=== PATIENT | male | born 1955 | race Caucasian/White ===

== ENCOUNTER 2018-02-14 22:05 | Emergency (ER) | payer SELFPAY ==
[2018-02-14 22:43] VITALS: BP 168/99; PULSE 105; TEMP 98.3; BMI 30.5
[2018-02-14] MEDS ORDERED: SODIUM CHLORIDE 0.9% 1000 ML INFUS.BAG IV ONE (23:00)
--- NOTE | 2018-02-14 23:00 | PDOC ---
History of Present Illness - General Chief Complaint: Injury Stated Complaint: FELL, LEFT LEG PAIN Time Seen by Provider: 02/14/18 22:44 - History of Present Illness Initial Comments: 02/15/18 03:44 Chief complaint leg injury History of present illness: 60 years old past medical history significant for cigarette smoking presents to the emergency department status post a fall that a few stairs landed on his left leg injuring his left leg. The fall occurred on Thursday and is currently Thursday. Over the last several days he has noted marked swelling and ecchymosis to his left lower extremity. Patient works in [employer] he is continued to go to work despite injury has been ambulating around and walking on the leg. Past History - Past Medical History Allergies/Adverse Reactions: Allergies Allergy/AdvReac Type Severity Reaction Status Date / Time No Known Allergies Allergy Verified 02/14/18 22:35 Home Medications: Ambulatory Orders Alprazolam [Xanax] 0.25 mg PO BID PRN 02/14/18 COPD: No Psychiatric Problems: Yes (BIPOLAR) - Suicide/Smoking/Psychosocial Hx Smoking History: Current every day smoker Have you smoked in the past 12 months: Yes Number of Cigarettes Smoked Daily: 10 Information on smoking cessation initiated: Yes 'Breaking Loose' booklet given: 11/24/15 Hx Alcohol Use: Yes (ONCE IN A WHILE ONLY) Drug/Substance Use Hx: No Substance Use Type: None Review of Systems - Review of Systems Comments:: 02/15/18 03:44 ROS: A complete review of 10 out of 10 review of systems is taken and is negative apart from what is previously mentioned below and in the HPI. *Physical Exam - Vital Signs Last Vital Signs Temp Pulse Resp BP Pulse Ox 98.3 F 105 H 18 168/99 100 02/14/18 22:33 02/14/18 22:33 02/14/18 22:33 02/14/18 22:33 02/14/18 22:33 - Physical Exam Comments: 02/15/18 03:45 Vitals: Triage Vital signs reviewed General Appearance: no acute distress, well nourished well developed, Head: Atraumatic, Neck: Supple;No Nucal rigidity Chest Wall: Nontender Cardiac: Regular rate and rhythym, no murmurs, no rubs, no gallops, Lungs: Clear to auscultation bilateral, good air movement bilaterally, Abdomen: Soft, non distended, normal bowel sounds, non tender to palpation Extremities: Full range of motion to all extremities, ecchymosis extending from the hamstring of the left leg down to the calf. With 2+ pitting edema. No tenderness to palpation over the pelvis hip no tenderness to palpation along the femur or knee tibia-fibula. Neurovascularly intact distally. Skin: Warm and dry, ecchymosis and swelling to the left leg. Neuro: Cranial Nerves 2-12 grossly intact, Strength intact to all extremities, Sensation intact to all extremities,gait normal Psych: normal mood, normal affect ED Treatment Course - LABORATORY CBC & Chemistry Diagram: 02/14/18 23:15 02/14/18 23:15 Medical Decision Making - Medical Decision Making 02/15/18 03:48 History and examination consistent with hamstring tear from fall with resulting edema and ecchymosis from continued walking and using leg No bony tenderness noted. Will check labs hydrate ultrasound to rule out DVT given swelling and reassess Reevaluation 3:30 AM no obvious DVT on ultrasound. Will recommend crutches nonweightbearing to left leg patient advised to purchase compression stocking keep leg elevated ice affected area and follow-up with orthopedics in 1-2 days Findings, the need for follow-up, strict return instructions discussed with patient. *DC/Admit/Observation/Transfer Diagnosis at time of Disposition: Hamstring tear - Discharge Dispostion Disposition: HOME Condition at time of disposition: Good Admit: No - Referrals Referrals: Ronnie Dixon MD [Primary Care Provider] - Jordan Correa MD [Staff Physician] - Nasir Valdez MD [Staff Physician] - Pedro Bravo MD [Staff Physician] - - Patient Instructions Printed Discharge Instructions: Muscle Strain Additional Instructions: Use crutches at all times while ambulating. Purchase thigh-high compression stockings extra-large wear at all times. Ice the back of your left thigh 20 minutes on 20 minutes off for the next 3 days. Take [id number] Motrin for 2 days as directed on package. Call today for an appointment with orthopedics within 1-2 days you can see either , Dr. Valdez, or Dr. Correa. Return to the emergency department for any severe pain chest pain shortness of breath or for any concerns. - Post Discharge Activity
[2018-02-15 00:09] LABS: BASO % 0.3 % (0-2.0); EOS % 2.5 % (0-4.5); HEMATOCRIT 29.5 % (35.4-49); HEMOGLOBIN 10.3 GM/dL (11.7-16.9); LYMPH % 19.1 % (8-40); MCH 33.7 pg (25.7-33.7); MEAN CELL VOLUME 96.2 fl (80-96); MEAN PLT VOLUME 8.6 fl (7.5-11.1); MONO % 6.1 % (3.8-10.2); PLATELET COUNT 319 K/MM3 (134-434); RBC 3.06 M/mm3 (4.00-5.60); RDW 12.6 % (11.9-15.9); WHITE BLOOD COUNT 8.9 K/mm3 (4.0-10.0)
[2018-02-15 00:49] LABS: ALBUMIN 2.9 g/dl (3.4-5.0); ALK PHOS 44 U/L (45-117); ANION GAP 8 (8-16); BILIRUBIN,TOTAL 0.4 mg/dL (0.2-1.0); BLOOD UREA NITROGEN 16 mg/dL (7-18); CHLORIDE 106 mmol/L (98-107); CO2 27 mmol/L (21-32); CREATININE 1.2 mg/dL (0.7-1.3); GLUCOSE,RANDOM 127 mg/dL (74-106); POTASSIUM 3.8 mmol/L (3.5-5.1); SGOT/AST 39 U/L (15-37); SGPT/ALT 36 U/L (12-78); SODIUM 141 mmol/L (136-145); TOT PROT 7.5 g/dl (6.4-8.2)
== END 2018-02-15 04:06 | disposition home or self-care (01) ==
LOC: FER 22:05
PROC: 3E0337Z Introduction of Electrolytic and Water Balance Substance into Peripheral Vein, Percutaneous Approach (ICD-10-PCS; principal; 2018-02-14)
DX: S76.312A Strain of muscle, fascia and tendon of the posterior muscle group at thigh level, left thigh, initial encounter (principal); W10.9XXA Fall (on) (from) unspecified stairs and steps, initial encounter; Y93.89 Activity, other specified; Y92.9 Unspecified place or not applicable
CPT/HCPCS: 36415; 80053; 82550; 82553; 85025; 87389; 93971-TC; 99282-25; J7030

== ENCOUNTER 2018-02-21 09:35 | Emergency (ER) | payer SELFPAY ==
[2018-02-21 09:53] VITALS: BP 134/74; PULSE 97; TEMP 98.2; BMI 30.2
--- NOTE | 2018-02-21 10:20 | PDOC ---
History of Present Illness - General Chief Complaint: Injury Stated Complaint: PERSISTENT LEG PAIN Time Seen by Provider: 02/21/18 09:45 History Source: Patient Exam Limitations: No Limitations - History of Present Illness Initial Comments: 02/21/18 10:14 62 y/o male seen last week due to a fall and had x-rays and US down of left leg and told he had a hamstring pull. Patient was upset since he did nit receive any pain medication. Patient fell down stairs yesterday at mother's house and denies LOC. Was brought to [facility] after 2 1/2 hours left without being seen. Patient now presents to ER today with increase pain and swelling to left leg. Able to walk on it. No fever or chills. No back pain, numbness or weakness. Taking Ibuprofen with no relief. No neck pain. No N/V/D/C. No chest pain or SOB. Pt is currently taking bactrim for MRSA infection to left ear. Occurred: reports: yesterday Severity: reports: mild Pain Location: reports: lower extremity Method of Injury: Yes: fall Past History - Past Medical History Allergies/Adverse Reactions: Allergies Allergy/AdvReac Type Severity Reaction Status Date / Time No Known Allergies Allergy Verified 02/21/18 09:38 Home Medications: Ambulatory Orders Oxycodone HCl/Acetaminophen [Percocet 5-325 mg Tablet] 1 tab PO Q4H #10 tablet MDD 6 02/21/18 Quetiapine Fumarate [Seroquel -] 50 mg PO DAILY 02/21/18 Sulfamethoxazole/Trimethoprim [Bactrim Ds -] 1 tab PO BID 02/21/18 COPD: No Psychiatric Problems: Yes (BIPOLAR) - Suicide/Smoking/Psychosocial Hx Smoking History: Never smoked Have you smoked in the past 12 months: Yes Number of Cigarettes Smoked Daily: 10 Information on smoking cessation initiated: Yes 'Breaking Loose' booklet given: 11/24/15 Hx Alcohol Use: Yes Drug/Substance Use Hx: No Substance Use Type: None Review of Systems - Review of Systems Able to Perform ROS?: Yes Is the patient limited Sami proficient: No Constitutional: No: Chills, Fever Respiratory: No: Cough, Shortness of Breath Cardiac (ROS): No: Chest Pain ABD/GI: No: Diarrhea, Nausea, Vomiting : No: Dysuria Musculoskeletal: No: Back Pain, Neck Pain Integumentary: Yes: Bruising. No: Rash Neurological: No: Headache *Physical Exam - Vital Signs Last Vital Signs Temp Pulse Resp BP Pulse Ox 98.2 F 97 H 18 134/74 100 02/21/18 09:35 02/21/18 09:35 02/21/18 09:35 02/21/18 09:35 02/21/18 09:35 - Physical Exam General Appearance: Yes: Nourished, Appropriately Dressed. No: Apparent Distress HEENT: positive: EOMI, MICHOACANO, Normal ENT Inspection, Normal Voice, Symmetrical, Pharynx Normal, Other (wound to left earlob, mild erythema and swelling noted, no drainage noted) Neck: positive: Trachea midline, Normal Thyroid, Supple (no spinous process tenderness, full ROM). negative: Tender, Rigid, Carotid bruit Respiratory/Chest: positive: Lungs Clear, Normal Breath Sounds. negative: Chest Tender, Respiratory Distress Cardiovascular: positive: Regular Rhythm, Regular Rate, S1, S2. negative: Edema , JVD, Murmur Vascular Pulses: Femoral (R): 4+, Femoral (L): 4+, Carotid (R): 4+, Carotid (L) : 4+, Dorsalis-Pedis (R): 4+, Doralis-Pedis (L): 4+ Gastrointestinal/Abdominal: positive: Normal Bowel Sounds, Flat, Soft. negative : Tender, Organomegaly, Pulsatile Mass Lymphatic: negative: Adenopathy, Tenderness, Other Musculoskeletal: positive: Normal Inspection. negative: CVA Tenderness, Vertebral Tenderness (no spinous process tenderness, full ROM) Extremity: positive: Normal Capillary Refill. negative: Normal Inspection ( left leg with calf tenderness, swelling and ecchymosis to foot,pulses 2+/4 b/l in LE, no compartment syndrome, full ROM. no swelling to knee or thigh, strength 5+/5 b/l in LE, no focal deficits noted) Integumentary: positive: Dry, Warm, Swelling, Ecchymosis, Bruising. 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 intact, Fully Oriented, Alert, Normal Mood/ Affect, Normal Response, Motor Strength 5/5 ED Treatment Course - RADIOLOGY Radiology Studies Ordered: Category Date Time Status LEG TIB/FIB-LEFT [RAD] Stat Radiology 02/21/18 10:14 Ordered DUPLEX VASCUL US-1 LEG [US] Stat Ultrasound 02/21/18 10:12 Ordered Progress Note - Progress Note Progress Note: Pt with left leg pain, will obtain repeat x-ray and US, since pt fell yesterday again re-injuring leg Pt is on agreement with plan US left leg: No DVT X-ray left leg: no fracture STS Pt is feeling much better Will discharge home with follow up with PMD Percocet 5/325 mg for pain If worsen [place] [facility] [place]DC/Admit/Observation/Transfer Diagnosis at time of Disposition: Contusion of leg, left Qualifiers: Encounter type: initial encounter Qualified Code(s): S80.12XA - Contusion of left lower leg, initial encounter Cellulitis of ear Qualifiers: Laterality: left Qualified Code(s): H60.12 - Cellulitis of left external ear - Discharge Dispostion Disposition: HOME Condition at time of disposition: Stable Admit: No - Referrals Referrals: Ronnie Dixon MD [Primary Care Provider] - - Patient Instructions Printed Discharge Instructions: DI for Leg Pain, DI for Cellulitis -- Adult Additional Instructions: Ice, Motrin, rest, elevate Percocet 5/325 mg 1 tab every 6 hr as needed Continue Bactrim for ear If worsen return to ER - Post Discharge Activity
== END 2018-02-21 13:02 | disposition home or self-care (01) ==
LOC: SUPCPDRO 09:35 → FER 09:35
DX: S80.12XA Contusion of left lower leg, initial encounter (principal); H60.12 Cellulitis of left external ear; B95.62 Methicillin resistant Staphylococcus aureus infection as the cause of diseases classified elsewhere; W10.8XXA Fall (on) (from) other stairs and steps, initial encounter; Y93.89 Activity, other specified; Y92.008 Other place in unspecified non-institutional (private) residence as the place of occurrence of the external cause
CPT/HCPCS: 73590-TC-LT-FY; 93971-TC; 99283-25

== ENCOUNTER 2018-03-16 23:17 | Emergency (ER) | payer SELFPAY ==
--- NOTE | 2018-03-17 00:23 | PDOC ---
History of Present Illness - General Chief Complaint: Abscess Boil Stated Complaint: LEFT EAR BOIL Time Seen by Provider: 03/16/18 23:33 - History of Present Illness Initial Comments: 03/17/18 00:15 62yoM hx of recurrent MRSA abscesses all over body presnets w/ MRSA abscess to L ear. Had a swelling w/ pus s/p I&D by his PMD in office last week --> cultures grew + MRSA. Pt now has new swelling/erythema over tragus of L ear w/ erythema surrounding ear and difficulty hearing on that side. No fevers. No posterior OP involement. Past History - Past Medical History Allergies/Adverse Reactions: Allergies Allergy/AdvReac Type Severity Reaction Status Date / Time No Known Allergies Allergy Verified 03/16/18 23:23 Home Medications: Ambulatory Orders Oxycodone HCl/Acetaminophen [Percocet 5-325 mg Tablet] 1 tab PO Q4H #10 tablet MDD 6 02/21/18 Quetiapine Fumarate [Seroquel -] 50 mg PO DAILY 02/21/18 Sulfamethoxazole/Trimethoprim [Bactrim DS -] 1 tab PO BID 7 Days #14 tablet COPD: No Psychiatric Problems: Yes (BIPOLAR) - Suicide/Smoking/Psychosocial Hx Smoking History: Never smoked Have you smoked in the past 12 months: Yes Number of Cigarettes Smoked Daily: 10 'Breaking Loose' booklet given: 02/21/18 Hx Alcohol Use: Yes Drug/Substance Use Hx: No Substance Use Type: None *Physical Exam - Physical Exam Comments: 03/17/18 00:16 NAD, well appearing L ear w/ erythema and swelling to tragus and anterior to ear. Swelling progresses around posterior to auricle and into ear canal. + small ear canal opening w/ pulling on pinna. ear canal with narrowing but no erythema or purulence. b/l TMs occluded by wax. + periauricular swelling mild. LN negative. Post OP WNL Procedures - Incision and Drainage I&D Site: Left: Other (Auricle) Betadine cleansed: Yes Anesthesia: 1% Lidocaine Volume(ml): 1 (regional block) Blade Size: 11 Attempts: 1 Complications: none Dressing: Yes (anterior and posterior pressure dressing applied to prevent hematoma) Progress: 03/17/18 01:35 I&D performed, mostly hematoma w/ small amount of purulence. Anterior and posterior pressure dressing applied. Medical Decision Making - Medical Decision Making 03/17/18 00:23 62yoM w/ recurrent MRSA infections of the L ear and other parts of the body presetns w/ recurrent likely MRSA abscess to Tragus w/ canal narrowing 2/2 swellling. abx d/w ENT/plastics for management/followup. *DC/Admit/Observation/Transfer Diagnosis at time of Disposition: Cellulitis - Discharge Dispostion Disposition: HOME Condition at time of disposition: Good - Prescriptions Prescriptions: Sulfamethoxazole/Trimethoprim [Bactrim DS -] 1 tab PO BID 7 Days #14 tablet - Referrals Referrals: Ronnie Dixon MD [Primary Care Provider] - Da Redd MD [Staff Physician] - Call tomorrow (62yoM w/ recurrent MRSA abscesses to various parts of body. Recent I&D by PMD near pinna on L. Now w/ swelling, redness. I&D performed in ER, mostly hematoma, small amount of pus. Anterior and posterior pressure dressing applied. Bactrim DS BID. ) - Patient Instructions - Post Discharge Activity
[2018-03-17] MEDS ORDERED: SULFAMETHOXAZOLE/TRIMETHOPRIM 800MG/160MG D.S. TABLET PO ONE (01:05)
[2018-03-17] MEDS ORDERED: SULFAMETHOXAZOLE/TRIMETHOPRIM 800MG/160MG D.S. TABLET ONE (01:22)
[2018-03-17 01:39] VITALS: BP 150/95; PULSE 90; TEMP 98.1; BMI 30.6
== END 2018-03-17 01:43 | disposition home or self-care (01) ==
LOC: FER 23:17
PROC: 0H93XZZ Drainage of Left Ear Skin, External Approach (ICD-10-PCS; principal; 2018-03-16)
DX: H60.12 Cellulitis of left external ear (principal); F31.9 Bipolar disorder, unspecified; Z86.14 Personal history of Methicillin resistant Staphylococcus aureus infection; Z87.891 Personal history of nicotine dependence
CPT/HCPCS: 99282-25

== ENCOUNTER 2018-05-08 00:12 | Emergency (ER) | payer SELFPAY ==
--- NOTE | 2018-05-08 00:17 | PDOC ---
History of Present Illness - General Chief Complaint: Pain, Acute Stated Complaint: WANTS TO BE CHECKED FOR MRSA; pt has a hx of MRSA infection; now with folliculitis over chest face and back (pt shaved self and likely spread a skin infection) Time Seen by Provider: 05/08/18 00:17 History Source: Patient, Family Exam Limitations: No Limitations - History of Present Illness Timing/Duration: 1 week, getting worse Severity: mild Associated Symptoms: reports: denies symptoms Past History - Travel Traveled outside of the country in the last 30 days: No Close contact w/someone who was outside of country & ill: No - Past Medical History Allergies/Adverse Reactions: Allergies Allergy/AdvReac Type Severity Reaction Status Date / Time No Known Allergies Allergy Verified 05/08/18 00:15 Home Medications: Ambulatory Orders Quetiapine Fumarate [Seroquel -] 50 mg PO DAILY 02/21/18 Divalproex Sodium [Depakote] 750 mg PO DAILY 05/08/18 Sulfamethoxazole/Trimethoprim [Bactrim Ds -] 1 tab PO BID #14 tablet 05/08/18 COPD: No Psychiatric Problems: Yes (BIPOLAR) - Suicide/Smoking/Psychosocial Hx Smoking History: Never smoked Have you smoked in the past 12 months: Yes Number of Cigarettes Smoked Daily: 10 'Breaking Loose' booklet given: 02/21/18 Hx Alcohol Use: Yes Drug/Substance Use Hx: No Substance Use Type: None Review of Systems - Review of Systems Able to Perform ROS?: Yes Is the patient limited Tamazight proficient: No Constitutional: No: Symptoms Reported, See HPI, Chills, Diaphoresis, Fever, Loss of Appetite, Malaise, Night Sweats, Weakness, Weight Stable, Unintentional Wgt. Loss, Unexplained wgt Loss, Other HEENTM: No: Symptoms Reported, See HPI, Eye Pain, Blurred Vision, Tearing, Recent change in vision, Double Vision, Cataracts, Ear Pain, Ocular Prothesis, Ear Discharge, Nose Pain, Nose Congestion, Tinnitus, Nose Bleeding, Hearing Loss , Throat Pain, Throat Swelling, Mouth Pain, Dental Problems, Difficulty Swallowing, Mouth Swelling, Other Respiratory: No: Symptoms reported, See HPI, Cough, Orthopnea, Shortness of Breath, SOB with Exertion, SOB at Rest, Stridor, Wheezing, Productive cough, Hemoptysis, Other Cardiac (ROS): No: Symptoms Reported, See HPI, Chest Pain, Edema, Irregular Heart Rate, Lightheadedness, Palpitations, Syncope, Chest Tightness, Other ABD/GI: No: Symptoms Reported, See HPI, Abdominal Distended, Abd. Pain w/ defecation, Blood Streaked Bowels, Constipated, Diarrhea, Difficulty Swallowing , Nausea, Poor Appetite, Poor Fluid Intake, Rectal Bleeding, Vomiting, Indigestion, Abdominal cramping, Tarry Stools, Other : No: Symptoms Reported, See HPI, Burning, Dysuria, Discharge, Frequency, Flank Pain, Hematuria, Incontinence, Pain, Urgency, Testicular Mass, Testicular Swelling, Lesions, Testicular Pain, Other Musculoskeletal: No: Symptoms Reported, See HPI, Back Pain, Gout, Joint Pain, Joint Swelling, Muscle Pain, Muscle Weakness, Neck Pain, Joint Stiffness, Other Integumentary: Yes: Lesions, Other (folliculitis; one on left upper chest and right back are pustular) Endocrine: No: Symptoms Reported, See HPI, Excessive Sweating, Flushing, Intolerance to Cold, Intolerance to Heat, Increased Hunger, Increased Thirst, Increased Urine, Unexplained Weight Gain, Unexplained Weight Loss, Change in Weight, Other *Physical Exam - Physical Exam General Appearance: Yes: Nourished, Appropriately Dressed. No: Apparent Distress HEENT: positive: EOMI, MICHOACANO, Normal ENT Inspection, Normal Voice, TMs Normal, Pharynx Normal Neck: positive: Trachea midline, Normal Thyroid, Supple Respiratory/Chest: positive: Lungs Clear, Normal Breath Sounds Cardiovascular: positive: Regular Rhythm, Regular Rate, S1, S2 Gastrointestinal/Abdominal: positive: Normal Bowel Sounds, Flat, Soft Musculoskeletal: positive: Normal Inspection. 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 He will be asked to follow with PMD. I+D of back pustulerevealed little to no pus. Most pus was squeezed out by myself prior to scalpel cut. *DC/Admit/Observation/Transfer Diagnosis at time of Disposition: Folliculitis barbae, Abscess - Discharge Dispostion Disposition: HOME Condition at time of disposition: Stable - Prescriptions Prescriptions: Sulfamethoxazole/Trimethoprim [Bactrim Ds -] 1 tab PO BID #14 tablet - Referrals - Patient Instructions Printed Discharge Instructions: DI for Methicillin-Resistant Staph Infection ( MRSA), Incision and Drainage of a Skin Abscess, DI for Folliculitis - Post Discharge Activity
[2018-05-08 00:23] VITALS: BP 164/100; PULSE 84; TEMP 98.7; BMI 31.0
[2018-05-08] MEDS ORDERED: LIDOCAINE HCL 2% (50ML VIAL) INF ONE (00:25)
[2018-05-08] MEDS ORDERED: SULFAMETHOXAZOLE/TRIMETHOPRIM 800MG/160MG D.S. TABLET PO ONE (00:26)
[2018-05-08] MEDS ORDERED: SULFAMETHOXAZOLE/TRIMETHOPRIM 800MG/160MG D.S. TABLET ONE (00:31)
[2018-05-08] MEDS ORDERED: LIDOCAINE HCL 2% (20ML MULTI-DOSE VIAL) NR ONE (00:31)
== END 2018-05-08 01:26 | disposition home or self-care (01) ==
LOC: FER 00:12
PROC: 0H96XZZ Drainage of Back Skin, External Approach (ICD-10-PCS; principal; 2018-05-08)
DX: L02.212 Cutaneous abscess of back [any part, except buttock and flank] (principal); L73.8 Other specified follicular disorders
CPT/HCPCS: 87070; 87186; 87205; 99281-25

== ENCOUNTER 2018-06-18 23:16 | Emergency (ER) | payer SELFPAY ==
[2018-06-19 00:07] VITALS: BP 137/89; PULSE 88; TEMP 99.2; BMI 14.1
--- NOTE | 2018-06-19 00:13 | PDOC ---
History of Present Illness - General Chief Complaint: Redness To Affected Area Stated Complaint: I HAVE MRSA Time Seen by Provider: 06/18/18 23:21 - History of Present Illness Initial Comments: This 63-year-old man with a history of skin abscesses infected with MRSA presents with several day history of draining pustule in the right lateral chest area. Patient states that for several years, he intermittently has skin infections which have grown out MRSA. He was last seen here last month with a chest wall folliculitis; culture and sensitivity of pus from this wound grew out MRSA sensitive to the antibiotic that he was prescribed (Bactrim). Patient reports that he had rapid healing of the folliculitis soon after Bactrim was started. He denies current fever/chills or other active wounds. Patient states that he is unclear of the source of his MRSA . He does admit to daily public gym use. Patient has never seen a a&p technician regarding measures to prevent further MRSA infections. Past History - Past Medical History Allergies/Adverse Reactions: Allergies Allergy/AdvReac Type Severity Reaction Status Date / Time No Known Allergies Allergy Verified 05/08/18 00:15 Home Medications: Ambulatory Orders Sulfamethoxazole/Trimethoprim [Bactrim Ds -] 1 tab PO BID #14 tablet 06/19/18 COPD: No Psychiatric Problems: Yes (BIPOLAR) - Suicide/Smoking/Psychosocial Hx Smoking History: Never smoked Have you smoked in the past 12 months: Yes Number of Cigarettes Smoked Daily: 10 Information on smoking cessation initiated: Yes 'Breaking Loose' booklet given: 02/21/18 Hx Alcohol Use: Yes Drug/Substance Use Hx: No Substance Use Type: None Review of Systems - Review of Systems Able to Perform ROS?: Yes Comments:: 12 point review of systems is negative except for what is noted in the history of present illness *Physical Exam - Vital Signs Last Vital Signs Temp Pulse Resp BP Pulse Ox 99.2 F 88 18 137/89 96 06/18/18 23:17 06/18/18 23:17 06/18/18 23:17 06/18/18 23:17 06/18/18 23:17 - Physical Exam Comments: GENERAL: Adult male, alert and oriented 3, no acute distress EXTREMITIES: Normal range of motion, no edema. No clubbing or cyanosis. No erythema, or tenderness. NEUROLOGICAL: Cranial nerves II through XII grossly intact. Normal speech. No focal neurological deficits. MUSCULOSKELETAL: Back non-tender to palpation, no CVA tenderness SKIN: 3 cm x 2 cm erythematous, tender, indurated area of the right lateral mid chest region Purulent drainage present from central opening Medical Decision Making - Medical Decision Making Culture and sensitivity sent of purulent drainage from abscess of the lateral right chest wall. Remainder of the area is indurated without obvious fluctuance. No incision made ; patient was instructed to actively apply warm packs to the area of the abscess to facilitate drainage from the area already open. Since previous 2 C&S results of purulent drainage have been MRSA sensitive to Bactrim, patient will be treated with Bactrim DS. When patient was seen here last month, dosage was one tablet twice a. Patient reports prompt healing of wound on that dosage. Therefore, patient will be given the lower(1 tab) twice a day rather than the 2 tabs per day dosage which causes greater amounts of side effects.. Patient should return to the ER if he has worsening pain/swelling of the area. Since patient has never seen a a&p technician, he was given referral to Dr. Nara Zayas with whom he should follow-up within the next few weeks *DC/Admit/Observation/Transfer Diagnosis at time of Disposition: Skin abscess Qualifiers: Site of cutaneous abscess: trunk Site of cutaneous abscess of trunk: chest wall Qualified Code(s): L02.213 - Cutaneous abscess of chest wall - Discharge Dispostion Disposition: HOME Condition at time of disposition: Stable - Prescriptions Prescriptions: Sulfamethoxazole/Trimethoprim [Bactrim Ds -] 1 tab PO BID #14 tablet - Referrals Referrals: Nara Zayas [Staff Physician] - - Patient Instructions Printed Discharge Instructions: DI for Skin Abscess Additional Instructions: Warm soaks to area of abscess at least 3-4 times a day Bactrim DS 1 tab twice a day for 1 week Follow-up with your doctor or return to ER if pain/swelling persists Follow-up with a&p technician (Dr. Zayas) within 1-2 weeks (call office on Thursday, June 21) - Post Discharge Activity
[2018-06-19] MEDS ORDERED: SULFAMETHOXAZOLE/TRIMETHOPRIM 800MG/160MG D.S. TABLET PO ONE (00:30)
[2018-06-19] MEDS ORDERED: SULFAMETHOXAZOLE/TRIMETHOPRIM 800MG/160MG D.S. TABLET ONE (00:33)
== END 2018-06-19 00:37 | disposition home or self-care (01) ==
LOC: FER 23:16
DX: L02.213 Cutaneous abscess of chest wall (principal); F31.9 Bipolar disorder, unspecified; Z86.14 Personal history of Methicillin resistant Staphylococcus aureus infection
CPT/HCPCS: 87070; 87186; 87205; 99281-25

== ENCOUNTER 2018-11-04 22:25 | Emergency (ER) | payer OTHER ==
[2018-11-04 22:32] VITALS: BP 152/90; PULSE 84; TEMP 98.8; BMI 30.9
--- NOTE | 2018-11-04 22:39 | PDOC ---
History of Present Illness - History of Present Illness Initial Comments: 11/04/18 22:43 The patient is a 63 year old male, with a significant past medical history of MRSA and recurrent diffuse body abscesses requiring I&D and Abx, who presents to the emergency department with a red, large, hot and tender abscess to his right anterior neck which he noticed today. He also reports a bump inside his nose which his ENT has diagnosed with MRSA which has been slightly draining. He states this feels like a MRSA infection. The patient denies chest pain, shortness of breath, headache and dizziness. The patient denies fever, chills, nausea, vomit, diarrhea and constipation. The patient denies dysuria, frequency, urgency and hematuria. PAST MEDICAL HISTORY: MRSA and recurrent diffuse body abscesses requiring I&D and Abx PAST SURGICAL HISTORY: no significant history FAMILY HISTORY: no pertinent history SOCIAL HISTORY: Pt lives with family and is employed. MEDICATIONS: reviewed ALLERGIES: As per nursing notes Adult ROS General: No fevers or chills, no weakness, no weight loss HEENT: No change in vision. No sore throat,. No ear pain CardioVascular: No chest pain or shortness of breath Respiratory:No cough, or wheezing. Gastrointestinal: no nausea, vomiting, diarrhea or constipation, No rectal bleeding Genitourinary: No dysuria, hematuria, or frequency Musculoskeletal: No joint or muscle pain or swelling Neurologic: No headache, vertigo, dizziness or loss of consciousness Psychiatric: nor depression Skin: (+) neck abscess. No rashes or easy bruising Endocrine: no increased thirst or abnormal weight change Allergic: no skin or latex allergy All other systems reviewed and normal PE GENERAL: The patient is awake, alert, and fully oriented, in no acute distress. HEAD: Normal with no signs of trauma. EYES: Pupils equal, round and reactive to light, extraocular movements intact, sclera anicteric, conjunctiva clear. EXTREMITIES: Normal range of motion, no edema. NEUROLOGICAL: Normal speech, normal gait. PSYCH: Normal mood, normal affect. SKIN: (+) [id number] abscess to left anterior neck with tenderness, surrounding erythema, and increased warmth. abscess firm no palpable collection. no drainage. Warm, Dry, normal turgor, no rashes noted. Documentation prepared by Cassandra Caldwell, acting as medical sales representative for Tanisha Acuna MD <Cassandra Caldwell - Last Filed: 11/04/18 22:43> - General History Source: Patient Exam Limitations: No Limitations - History of Present Illness Initial Comments: A portion of this note was documented by scribe services under my direction. I have reviewed the details of the note, within reason, and agree with the documentation with the following case summary and management plan written by me. Patient treated in the ED. Nursing notes are reviewed and incorporated into the medical decision-making. Vital signs reviewed. 11/04/18 23:02 This is a 63-year-old male who comes in complaining of an abscess on his neck. Patient has a history of MRSA infections in the past requiring I&D. Patient has had this current infection times several hours only. It has not formed an abscess yet. Patient given vancomycin here and told to start hot soaks and given a prescription for Bactrim. Patient discharged home. Patient told to follow-up with his ENT. <Tanisha Acuna I - Last Filed: 11/04/18 23:06> - General Chief Complaint: Abscess Boil Stated Complaint: NECK ABSCESS Time Seen by Provider: 11/04/18 22:38 Past History <Cassandra Caldwell - Last Filed: 11/04/18 22:43> - Past Medical History COPD: No Psychiatric Problems: Yes (BIPOLAR) Other medical history: MRSA - Suicide/Smoking/Psychosocial Hx Smoking History: Current some day smoker Have you smoked in the past 12 months: Yes Number of Cigarettes Smoked Daily: 1 Information on smoking cessation initiated: Yes 'Breaking Loose' booklet given: 02/21/18 Hx Alcohol Use: Yes Drug/Substance Use Hx: No Substance Use Type: None <Tanisha Acuna I - Last Filed: 11/04/18 23:06> - Past Medical History Allergies/Adverse Reactions: Allergies Allergy/AdvReac Type Severity Reaction Status Date / Time No Known Allergies Allergy Verified 05/08/18 00:15 Home Medications: Ambulatory Orders Sulfamethoxazole/Trimethoprim [Bactrim Ds -] 1 tab PO BID #14 tablet 06/19/18 Sulfamethoxazole/Trimethoprim [Bactrim DS -] 1 tab PO BID #20 tablet 11/04/18 *Physical Exam - Vital Signs Last Vital Signs Temp Pulse Resp BP Pulse Ox 98.8 F 84 16 152/90 98 11/04/18 22:28 11/04/18 22:28 11/04/18 22:28 11/04/18 22:28 11/04/18 22:28 <Cassandra Caldwell - Last Filed: 11/04/18 22:43> - Vital Signs Last Vital Signs Temp Pulse Resp BP Pulse Ox 98.8 F 84 16 152/90 98 11/04/18 22:28 11/04/18 22:28 11/04/18 22:28 11/04/18 22:28 11/04/18 22:28 <Tanisha Acuna I - Last Filed: 11/04/18 23:06> Moderate Sedation - Procedure Monitoring Vital Signs: Procedure Monitoring Vital Signs Temperature 98.8 F 11/04/18 22:28 Pulse Rate 84 11/04/18 22:28 Respiratory Rate 16 11/04/18 22:28 Blood Pressure 152/90 11/04/18 22:28 O2 Sat by Pulse Oximetry (%) 98 11/04/18 22:28 <Cassandra Caldwell - Last Filed: 11/04/18 22:43> - Procedure Monitoring Vital Signs: Procedure Monitoring Vital Signs Temperature 98.8 F 11/04/18 22:28 Pulse Rate 84 11/04/18 22:28 Respiratory Rate 16 11/04/18 22:28 Blood Pressure 152/90 11/04/18 22:28 O2 Sat by Pulse Oximetry (%) 98 11/04/18 22:28 <Tanisha Acuna I - Last Filed: 11/04/18 23:06> *DC/Admit/Observation/Transfer <Cassandra Caldwell - Last Filed: 11/04/18 22:43> - Discharge Dispostion Decision to Admit order: No <Tanisha Acuna I - Last Filed: 11/04/18 23:06> Diagnosis at time of Disposition: Cellulitis of neck - Discharge Dispostion Disposition: HOME Condition at time of disposition: Stable - Prescriptions Prescriptions: Sulfamethoxazole/Trimethoprim [Bactrim DS -] 1 tab PO BID #20 tablet - Patient Instructions Additional Instructions: Tylenol or Motrin as needed for pain Call your ENT in the morning and have your ENT check the infection to make sure it is improving. Start hot soaks to the area tonight. Take Bactrim 1 tablet twice a day for 10 days. Return to the emergency department immediately with ANY new, persistent or worsening symptoms. Continue any medications as previously prescribed by your physician. You should follow up with your primary doctor as soon as possible regarding today's emergency department visit. . Please make sure your doctor reviews the results of your emergency evaluation. Thank you for coming to the Emergency Department today for your care. It was a pleasure to see you today. Please note that your evaluation is INCOMPLETE until you follow-up with your doctor.
[2018-11-04] MEDS ORDERED: VANCOMYCIN 1,000 MG VIAL (RESTRICTED TO ID ONLY) ONE (22:43)
[2018-11-04] MEDS ORDERED: VANCOMYCIN 1 GRAM (PRE-DOCKED) 1,000 MG/250 ML BAG IVPB ONE (23:00)
== END 2018-11-05 00:10 | disposition home or self-care (01) ==
LOC: FER 22:25
DX: L03.221 Cellulitis of neck (principal); F17.210 Nicotine dependence, cigarettes, uncomplicated; F31.9 Bipolar disorder, unspecified; Z86.14 Personal history of Methicillin resistant Staphylococcus aureus infection
CPT/HCPCS: 99282-25

== ENCOUNTER 2019-10-21 03:31 | Emergency (ER) | payer OTHER ==
[2019-10-21 03:49] VITALS: BP 149/89; PULSE 96; TEMP 98.6; BMI 23.4
[2019-10-21] MEDS ORDERED: IBUPROFEN 400 MG TABLET (FP) PO ONE ×2 (03:49→03:57)
--- NOTE | 2019-10-21 03:59 | PDOC ---
History of Present Illness - General Chief Complaint: Injury Stated Complaint: TOE PAIN Time Seen by Provider: 10/21/19 03:39 History Source: Patient Exam Limitations: No Limitations - History of Present Illness Initial Comments: 10/21/19 03:56 This is a 64-year-old male who comes in complaining of right toe pain. Patient said he dropped a steel plate on his toe 2 days ago and it is been painful ever since. Patient did not take anything for the pain. Allergies: as per nursing notes Past Medical History: none Social history: Lives with family. No smoking. No alcohol. No illicit drugs. Surgical history: None General: No fevers or chills, no weakness, no weight loss HEENT: No change in vision. No sore throat,. No ear pain CardioVascular: no chest discomfort. No shortness of breath Respiratory:No cough, or wheezing. Gastrointestinal: no nausea, vomiting, diarrhea or constipation, No rectal bleeding Genitourinary: No dysuria, hematuria, or frequency Musculoskeletal: Right great toe pain Neurologic: No headache, vertigo, dizziness or loss of consciousness Psychiatric: nor depression Skin: No rashes or easy bruising Endocrine: no increased thirst or abnormal weight change Allergic: no skin or latex allergy All other systems reviewed and normal GENERAL: The patient is awake, alert, and fully oriented, in no acute distress. HEAD: Normal with no signs of trauma. EYES: Pupils equal, round and reactive to light, extraocular movements intact, sclera anicteric, conjunctiva clear. EXTREMITIES right great toe is swollen with tenderness over the distal phalanx neurovascular is intact NEUROLOGICAL: Normal speech, normal gait. PSYCH: Normal mood, normal affect. SKIN: Warm, Dry, normal turgor, no rashes or lesions noted. Assessment and plan: This is a 64-year-old male with pain in his right great toe. Patient had an x-ray that was negative for any acute pathology. Patient discharged home will follow-up with his primary care doctor I did discuss the possibility of gout with him that he does not have a history of gout and there is no erythema or increase in warmth. Patient will take NSAIDs Past History - Past Medical History Allergies/Adverse Reactions: Allergies Allergy/AdvReac Type Severity Reaction Status Date / Time No Known Allergies Allergy Verified 05/08/18 00:15 Home Medications: Ambulatory Orders Amoxicillin - [Amoxicillin 250mg Capsule -] 250 mg PO BID 10/21/19 COPD: No Psychiatric Problems: Yes (BIPOLAR) - Psycho Social/Smoking Cessation Hx Smoking History: Unknown if ever smoked Have you smoked in the past 12 months: No Number of Cigarettes Smoked Daily: 1 Information on smoking cessation initiated: No 'Breaking Loose' booklet given: 02/21/18 Hx Alcohol Use: Yes Drug/Substance Use Hx: No Substance Use Type: None *Physical Exam - Vital Signs Last Vital Signs Temp Pulse Resp BP Pulse Ox 98.6 F 96 H 16 149/89 96 10/21/19 03:32 10/21/19 03:32 10/21/19 03:32 10/21/19 03:32 10/21/19 03:32 Discharge - Discharge Information Problems reviewed: Yes Clinical Impression/Diagnosis: Contusion of right great toe without damage to nail Qualifiers: Encounter type: initial encounter Qualified Code(s): S90.111A - Contusion of right great toe without damage to nail, initial encounter Condition: Stable Disposition: HOME - Admission No - Follow up/Referral Referrals: Ronnie Upton MD [Primary Care Provider] - - Patient Discharge Instructions Additional Instructions: Take ibuprofen 3 tablets 3 times a day with food do not take on an empty stomach. Take the ibuprofen for the pain. Return to the emergency department immediately with ANY new, persistent or worsening symptoms. Continue any medications as previously prescribed by your physician. You should follow up with your primary doctor as soon as possible regarding today's emergency department visit. . Please make sure your doctor reviews the results of your emergency evaluation. Thank you for coming to the Emergency Department today for your care. It was a pleasure to see you today. Please note that your evaluation is INCOMPLETE until you follow-up with your doctor. - Post Discharge Activity
== END 2019-10-21 04:48 | disposition home or self-care (01) ==
LOC: FER 03:31
DX: S90.111A Contusion of right great toe without damage to nail, initial encounter (principal); W20.8XXA Other cause of strike by thrown, projected or falling object, initial encounter; Y93.9 Activity, unspecified; Y92.9 Unspecified place or not applicable
CPT/HCPCS: 73660-TC-FY; 99281-25

== ENCOUNTER 2019-12-23 19:39 | Emergency (ER) | payer OTHER ==
[2019-12-23 19:53] VITALS: BP 134/88; PULSE 89; TEMP 98.5; BMI 23.4
--- NOTE | 2019-12-23 23:38 | PDOC ---
Documentation entered by Nazia Rossi SCRIBE, acting as scribe for Ana M Lynch MD. Ana M Lynch MD: This documentation has been prepared by the Flo wiley Brenda, SCRIBE, under my direction and personally reviewed by me in its entirety. I confirm that the documentation accurately reflects all work, treatment, procedures, and medical decision making performed by me. History of Present Illness - General Chief Complaint: Injury Stated Complaint: INJURY History Source: Patient Exam Limitations: No Limitations - History of Present Illness Initial Comments: 12/23/19 20:34 The patient is a 64 year old male with a significant PMH of pansinusitis who presents to the ED after being struck in the face by a snapped cable while working out at the gym(overhead pulldown machine) earlier this evening. Patient notes that the snapped cable hit the bridge of his nose and fingers on left hand. He also stated his nose bled; he endorses a headache and pain in his left fingers. Allergies: NKA Social Hx: Has returned to tobacco smoking in the last 3 weeks after 8 months. 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) Past History - Past Medical History Allergies/Adverse Reactions: Allergies Allergy/AdvReac Type Severity Reaction Status Date / Time No Known Allergies Allergy Verified 05/08/18 00:15 Home Medications: Ambulatory Orders Amoxicillin - [Amoxicillin 250mg Capsule -] 250 mg PO BID 10/21/19 COPD: No Psychiatric Problems: Yes (BIPOLAR) - Psycho Social/Smoking Cessation Hx Smoking History: Unknown if ever smoked Have you smoked in the past 12 months: No Number of Cigarettes Smoked Daily: 1 'Breaking Loose' booklet given: 02/21/18 Hx Alcohol Use: Yes Drug/Substance Use Hx: No Substance Use Type: None Review of Systems - Review of Systems Able to Perform ROS?: Yes Comments:: 12/23/19 20:37 GENERAL/CONSTITUTIONAL: No fever or chills. No weakness. HEAD, EYES, EARS, NOSE AND THROAT: (+) Headache. (+) Small abrasian on nose. No change in vision. No ear pain or discharge. No sore throat. CARDIOVASCULAR: No chest pain or shortness of breath. RESPIRATORY: No cough, wheezing, or hemoptysis. GASTROINTESTINAL: No nausea, vomiting, diarrhea or constipation. GENITOURINARY: No dysuria, frequency, or change in urination. MUSCULOSKELETAL: No joint or muscle swelling. No neck or back pain. SKIN: No rash NEUROLOGIC: No headache, vertigo, loss of consciousness, or change in strength/ sensation. ENDOCRINE: No increased thirst. No abnormal weight change. HEMATOLOGIC/LYMPHATIC: No anemia, easy bleeding, or history of blood clots. ALLERGIC/IMMUNOLOGIC: No hives or skin allergy. *Physical Exam - Vital Signs Last Vital Signs Temp Pulse Resp BP Pulse Ox 98.5 F 89 16 134/88 98 12/23/19 19:42 12/23/19 19:42 12/23/19 19:42 12/23/19 19:42 12/23/19 19:42 - Physical Exam 12/23/19 20:38 GENERAL: Awake, alert, and fully oriented, in no acute distress HEAD: (+) Non bleeding abrasion of nasal bridge with mild edema and tenderness of right side of nasal bridge. No obvious deformity of nose. No dry blood seen at either nares. No septal hematoma. No periorbital edema or tenderness. EYES: PERRLA, EOMI, sclera anicteric, conjunctiva clear ENT: Auricles normal inspection, hearing grossly normal, nares patent, oropharynx clear without exudates. Moist mucosa NECK: No tenderness. Normal ROM, supple, no lymphadenopathy, JVD, or masses LUNGS: Breath sounds equal, clear to auscultation bilaterally. No wheezes, and no crackles HEART: Regular rate and rhythm, normal S1 and S2, no murmurs, rubs or gallops ABDOMEN: Soft, nontender, normoactive bowel sounds. No guarding, no rebound. No masses EXTREMITIES: (+) Mild tenderness/edema to distal portion of 2,3,4 fingers of left hand. No ecchymosis or deformities obvious. No injury of any nail beds noted. Normal range of motion, no edema. No clubbing or cyanosis. No cords, erythema, or tenderness NEUROLOGICAL: Cranial nerves II through XII grossly intact. Normal speech, normal gait SKIN: Warm, Dry, normal turgor, no rashes or lesions noted. ED Treatment Course - RADIOLOGY Radiology Studies Ordered: Category Date Time Status HAND- LEFT [RAD] Stat Radiology 12/23/19 20:34 Completed NASAL BONES [RAD] Stat Radiology 12/23/19 20:34 Taken Medical Decision Making - Medical Decision Making As noted above, 64-year-old man presents after an injury sustained in a gym: As he was using overhead pulldown machine, cable broke and struck him in the nasal bridge and across the left fingers. He states that he had a nosebleed ( resolved spontaneously) and has persistent nasal and left finger pain. He denies loss of consciousness, striking his head or neck after the injury, chest pain, abdominal pain. His lower extremities were not involved and he has been walking without difficulty. Nasal x-ray as well as left hand x-ray performed: Preliminary nasal bone x-ray interpretation by me-no evidence of acute fracture or dislocation Left hand x-ray was interpreted by Dr. Chung of the radiology staff: Displaced fractures of uncertain age were seen in the distal (second) and middle (third) phalanges of the fingers of the left hand. Since the areas of the displaced fractures correlated well with where the patient had current edema, erythema and tenderness, these fingers were splinted. Patient was told not to remove the finger splints until seen by hand surgeon. Patient does not currently have a but hand surgeon he was given referral information for [facility]. He should call the office on December 26 to arrange follow-up within the next several days. Meanwhile, he should keep his head elevated and apply cool compresses to his nasal bridge. He should return to the ER if he has any worsening pain, swelling or if he has persistent, recurrent epistaxis Discharge - Discharge Information Problems reviewed: Yes Clinical Impression/Diagnosis: Nasal abrasion Qualifiers: Encounter type: initial encounter Qualified Code(s): S00.31XA - Abrasion of nose, initial encounter Avulsion fracture of distal phalanx of finger Qualifiers: Encounter type: initial encounter Fracture type: closed Qualified Code(s): S62.639A - Displaced fracture of distal phalanx of unspecified finger, initial encounter for closed fracture Condition: Stable Disposition: HOME - Follow up/Referral Referrals: Pedro Bravo MD [Staff Physician] - - Patient Discharge Instructions Patient Printed Discharge Instructions: DI for Finger Fracture, Finger Extensor Tendon Injury Additional Instructions: Elevate head; ice to nasal bridge as needed Keep splints on index and middle fingers of left hand Elevate left hand with ice to injured areas for the next 2 days Follow-up with hand surgeon (Grace /Madeline) for the next 5 to 7 days Return to ER if you have worsening pain or swelling - Post Discharge Activity
== END 2019-12-23 22:06 | disposition home or self-care (01) ==
LOC: FER 19:39
DX: S62.639A Displaced fracture of distal phalanx of unspecified finger, initial encounter for closed fracture (principal); S00.31XA Abrasion of nose, initial encounter; W20.8XXA Other cause of strike by thrown, projected or falling object, initial encounter; Y93.89 Activity, other specified; Y92.39 Other specified sports and athletic area as the place of occurrence of the external cause; F31.9 Bipolar disorder, unspecified; Z72.0 Tobacco use
CPT/HCPCS: 70160-TC-FY; 73130-TC-LT-FY; 99284-25

== ENCOUNTER 2021-01-04 15:17 | Emergency (ER) | payer OTHER | END 2021-01-04 15:35 | disposition home or self-care (01) | LOC: JVIRT 15:17 | DX: Z11.52 Encounter for screening for COVID-19 (principal) | CPT/HCPCS: C9803; G2251-GT; U0003 ==

== ENCOUNTER 2022-08-12 03:04 | Inpatient (IN) | payer OTHER ==
[2022-08-12] MEDS ORDERED: VANCOMYCIN 1 GM in D5W (PRE-DOCKED) 1,000 MG/250 ML IVPB ONE (03:27)
[2022-08-12] MEDS ORDERED: PIPERACILLIN/TAZOB 3.375 GM 3.375 GM in DEXTROSE 5%-WATER - 50 ML IVPB ONE (03:28)
[2022-08-12] MEDS ORDERED: VANCOMYCIN 1,000 MG VIAL (RESTRICTED TO ID ONLY) ONE (03:42)
[2022-08-12] MEDS ORDERED: PIPERACILLIN/TAZOBACTAM 3.375 GM VIAL IVPB ONE (03:42)
[2022-08-12 03:53] LABS: BASO % 0.4 % (0-2.0); EOS % 1.5 % (0-4.5); HEMOGLOBIN 12.1 GM/dL (11.7-16.9); LYMPH % 17.3 % (8-40); MCH 34.7 pg (25.7-33.7); MCHC 35.6 g/dl (32.0-35.9); MEAN CELL VOLUME 97.5 fl (80-96); MONO % 5.5 % (3.8-10.2); NEUT % 75.3 % (42.8-82.8); PLATELET COUNT 317 10^3/uL (134-434); RBC 3.49 M/mm3 (4.00-5.60); RDW 12.5 % (11.9-15.9); WHITE BLOOD COUNT 6.9 K/mm3 (4.0-10.0)
[2022-08-12 04:19] LABS: BLOOD UREA NITROGEN 14.8 mg/dL (7-18); CALCIUM 8.4 mg/dL (8.5-10.1)
[2022-08-12 04:22] LABS: CREATININE 1.2 mg/dL (0.55-1.3)
[2022-08-12 04:24] LABS: BILIRUBIN,TOTAL 0.2 mg/dL (0.2-1); TOT PROT 9.8 g/dl (6.4-8.2)
[2022-08-12] MEDS ORDERED: DOCUSATE SODIUM 100 MG CAPSULE (FP) PO PRN (04:51)
[2022-08-12 05:50] VITALS: BMI 29.3
[2022-08-12 08:27] LABS: INR 1.08 (0.83-1.09); PROTHROMBIN TIME (PATIENT) 12.4 SEC (9.7-13.0)
[2022-08-12] MEDS: ENOXAPARIN NA (PORCINE) 40 MG/0.4 ML DISP.SYRIN SQ SCH (09:51)
[2022-08-12] MEDS ORDERED: PIPERACILLIN/TAZOB 3.375 GM 3.375 GM in DEXTROSE 5%-WATER - 50 ML IVPB SCH (10:00)
[2022-08-12] MEDS ORDERED: PIPERACILLIN/TAZOB 3.375 GM 3.375 GM/50 ML BAG IVPB SCH (10:00)
[2022-08-12] MEDS: ACETAMINOPHEN 1000 MG/100 ML BAG IVPB PRN (15:42)
[2022-08-12] MEDS ORDERED: VANCOMYCIN/WATER 1,250 MG/250 ML BAG IVPB SCH (16:00)
[2022-08-12 20:24] VITALS: RESP 18
[2022-08-13] MEDS: ACETAMINOPHEN 1000 MG/100 ML BAG IVPB PRN (01:14)
[2022-08-13 02:06] VITALS: TEMP 97.9
[2022-08-13] MEDS ORDERED: VANCOMYCIN/WATER 1,250 MG/250 ML BAG IVPB SCH (04:00)
[2022-08-13] MEDS ORDERED: ACETAMINOPHEN 325 MG TABLET (FP) PO PRN (04:51)
[2022-08-13 07:57] LABS: ALBUMIN 2.6 g/dl (3.4-5.0); BILIRUBIN,TOTAL 0.6 mg/dl (0.2-1); CALCIUM 8.2 mg/dl (8.5-10); TOT PROT 8.4 g/dl (6.4-8.2)
[2022-08-13 09:16] LABS: BASO % 0.6 % (0-2.0); EOS % 3.5 % (0-4.5); HEMATOCRIT 31.4 % (35.4-49); HEMOGLOBIN 11.2 GM/dL (11.7-16.9); LYMPH % 20.5 % (8-40); MCH 34.8 pg (25.7-33.7); MCHC 35.7 g/dl (32.0-35.9); MEAN CELL VOLUME 97.4 fl (80-96); MEAN PLT VOLUME 8.2 fl (7.5-11.1); MONO % 6.4 % (3.8-10.2); PLATELET COUNT 273 10^3/uL (134-434); RBC 3.22 M/mm3 (4.00-5.60); RDW 12.8 % (11.9-15.9); WHITE BLOOD COUNT 5.3 K/mm3 (4.0-10.0)
[2022-08-13] MEDS ORDERED: LOSARTAN 50MG/HCTZ 12.5MG 1 TAB PO SCH (10:00)
[2022-08-13] MEDS ORDERED: amLODIPine BESYLATE 5 MG TABLET (FP) PO SCH (10:00)
[2022-08-13 10:15] VITALS: BP 151/100; PULSE 116
[2022-08-13] MEDS: ENOXAPARIN NA (PORCINE) 40 MG/0.4 ML DISP.SYRIN SQ SCH (11:15)
[2022-08-13 11:53] LABS: HIV INTERPRETATION NEGATIVE (NEGATIVE)
[2022-08-13] MEDS ORDERED: OLANZapine 5 MG TABLET PO SCH (22:00)
== END 2022-08-13 11:35 | disposition home or self-care (01) | DRG 383 ==
LOC: FER 03:04 → FM/S 04:57
PROVIDERS: ADMIT Internal Medicine
DX: L03.114 Cellulitis of left upper limb (principal); M25.429 Effusion, unspecified elbow; M70.22 Olecranon bursitis, left elbow; R77.8 Other specified abnormalities of plasma proteins; Z86.14 Personal history of Methicillin resistant Staphylococcus aureus infection; I10 Essential (primary) hypertension; E78.5 Hyperlipidemia, unspecified
CPT/HCPCS: 0241U-QW; 36415; 71045-TC-FY; 73200-TC-RT; 80053; 83036; 83605; 85025; 85610; 85651; 85730; 86140; 87040; 87081; 87389; 93005; 99285-25

== ENCOUNTER 2022-09-05 15:55 | Emergency (ER) | payer OTHER ==
[2022-09-05 16:23] VITALS: BP 134/86; PULSE 97; RESP 18; TEMP 98.7; BMI 29.2
[2022-09-05] MEDS ORDERED: IBUPROFEN 400 MG TABLET (FP) PO ONE ×2 (17:05→17:09)
== END 2022-09-05 17:16 | disposition home or self-care (01) ==
LOC: FER 15:55
DX: M70.22 Olecranon bursitis, left elbow (principal)
CPT/HCPCS: 99283-25

== ENCOUNTER 2023-11-03 15:43 | Emergency (ER) | payer OTHER ==
[2023-11-03 16:28] VITALS: BP 149/101; PULSE 83; RESP 16; TEMP 98.1; BMI 30.2
[2023-11-03] MEDS ORDERED: KETOROLAC TROMETHAMINE 60 MG/2 ML VIAL IM ONE (16:32)
[2023-11-03] MEDS ORDERED: CYCLOBENZAPRINE HCL 10 MG TABLET (FP) PO ONE (16:33)
[2023-11-03] MEDS ORDERED: KETOROLAC TROMETHAMINE 60 MG/2 ML VIAL ONE (16:56)
[2023-11-03] MEDS ORDERED: CYCLOBENZAPRINE HCL 5 MG TABLET ONE (16:57)
== END 2023-11-03 18:29 | disposition home or self-care (01) ==
LOC: FER 15:43
PROC: 3E0233Z Introduction of Anti-inflammatory into Muscle, Percutaneous Approach (ICD-10-PCS; principal; 2023-11-03)
DX: M25.511 Pain in right shoulder (principal); M54.50 Low back pain, unspecified; S39.012A Strain of muscle, fascia and tendon of lower back, initial encounter; V53.5XXA Driver of pick-up truck or van injured in collision with car, pick-up truck or van in traffic accident, initial encounter; Y92.410 Unspecified street and highway as the place of occurrence of the external cause
CPT/HCPCS: 72100-TC-FY; 73030-TC-RT-FY; 99284-25